=== PATIENT | female | born 1975 | race Two or more races ===

== ENCOUNTER 2020-10-19 07:11 | Day surgery (SDC) | payer OTHER ==
[~2020-10-19 07:11] MED LIST: Lactated Ringers 1,000 ML IV SCH; Sodium Chloride 0.9% 10 ML SDV IV PRN; Sodium Chloride 0.9% 10 ML Syringe FLUSH PRN; Sodium Chloride 0.9% 2.5 ML Syringe FLUSH PRN
[2020-10-19] MEDS ORDERED: propofoL 50 ML ONE (07:13)
--- NOTE | 2020-10-19 08:36 | PCM.PREANE ---
Preanesthetic Assessment - Anesthesia/Transfusion/Family Hx Anesthesia History: Prior Anesthesia Without Reaction Transfusion History: No Prior Transfusion(s) - Review of Systems General: No Symptoms Pulmonary: No Symptoms Cardiovascular: No Symptoms Gastrointestinal: No Symptoms Neurological: No Symptoms Other: Reports: None - Physical Assessment NPO Status Date: 10/19/20 NPO Status Time: 00:00 Vital Signs: Last Vital Signs Temp 97.7 F 10/19/20 07:26 Pulse 83 10/19/20 07:26 Resp 16 10/19/20 07:26 BP 108/70 10/19/20 07:26 Pulse Ox 99 10/19/20 07:26 Height: 5 ft 6 in Weight: 185 lb ASA Class: 2 Mental Status: Alert & Oriented x3 Airway Class: Mallampati = 2 Dentition: Reports: Normal Dentition ROM/Head Extension: Full Lungs: Clear to Auscultation, Normal Respiratory Effort Cardiovascular: Regular Rate, Regular Rhythm - Lab Values: Laboratory Last Values Urine HCG, Qual NEGATIVE (NEGATIVE) 10/19/20 07:20 - Allergies Allergies/Adverse Reactions: Allergies Allergy/AdvReac Type Severity Reaction Status Date / Time No Known Allergies Allergy Verified 10/13/20 13:50 - Acknowledgements Anesthesia Type Planned: General Anesthesia Pt an Appropriate Candidate for the Planned Anesthesia: Yes Alternatives and Risks of Anesthesia Discussed w Pt/Guardian: Yes Pt/Guardian Understands and Agrees with Anesthesia Plan: Yes PreAnesthesia Questionnaire HEENT History: Reports: Other (See Below) Other HEENT History: wears glasses Cardiovascular History: Reports: None Respiratory History: Reports: None Gastrointestinal History: Reports: Hemorrhoids, Other (See Below) Other Gastrointestinal History: occasional heartburn- takes OTC Prilosec, current rectal bleeding Genitourinary History: Reports: None 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: Musculoskeletal History: Reports: None Neurological History: Reports: Other (See Below) Other Neuro History: Sciatica Psychiatric History: Reports: ADHD Endocrine/Metabolic History: Reports: None Hematologic History: Reports: None Immunologic History: Reports: None Oncologic (Cancer) History: Reports: None Dermatologic History: Reports: None - Past Surgical History Head Surgeries/Procedures: Reports: None HEENT Surgical History: Reports: None Cardiovascular Surgical History: Reports: None Respiratory Surgical History: Reports: None GI Surgical History: Reports: None Female Surgical History: Reports: D&C, Tubal Ligation Endocrine Surgical History: Reports: None Neurological Surgical History: Reports: None Musculoskeletal Surgical History: Reports: None Oncologic Surgical History: Reports: None - SUBSTANCE USE Tobacco Use Status *Q: Never Tobacco User Recreational Drug Use History: No - HOME MEDS Home Medications: Home Meds Lisdexamfetamine [Vyvanse] 60 mg PO QAM 10/13/20 [History] Omeprazole Magnesium [Prilosec Otc] 20 mg PO DAILY PRN 10/13/20 [History] - CURRENT (IN HOUSE) MEDS Current Meds: Current Medications Lactated Ringer's (Ringers, Lactated) 1,000 mls @ 125 mls/hr IV ASDIRECTED YO Last Admin: 10/19/20 07:29 Dose: 125 mls/hr Documented by: Sodium Chloride (Sodium Chloride 0.9% 10 Ml Syringe) 10 ml FLUSH ASDIRECTED PRN PRN Reason: Keep Vein Open Sodium Chloride (Sodium Chloride 0.9% 2.5 Ml Syringe) 2.5 ml FLUSH ASDIRECTED PRN PRN Reason: Keep Vein Open Sodium Chloride (Sodium Chloride 0.9% 10 Ml Syringe) 10 ml FLUSH ASDIRECTED PRN PRN Reason: Keep Vein Open Sodium Chloride (Sodium Chloride 0.9% 2.5 Ml Syringe) 2.5 ml FLUSH ASDIRECTED PRN PRN Reason: Keep Vein Open Sodium Chloride (Sodium Chloride 0.9% 10 Ml Sdv) 10 ml IV ASDIRECTED PRN PRN Reason: IV Use Discontinued Medications Propofol (Diprivan 50 Ml) Confirm Administered Dose 50 mls @ as directed .ROUTE .STK-MED ONE Stop: 10/19/20 07:14
[2020-10-19] MEDS ORDERED: fentaNYL 100 MCG/2 ML SDV ONE (08:39)
--- NOTE | 2020-10-19 09:22 | PCM.OPNOTE ---
- General Post-Op/Procedure Note Date of Surgery/Procedure: 10/19/20 Operative Procedure(s): Diagnostic EGD and colonoscopy Findings: Hyperplastic polyps throughout the gastric antrum and body. Diverticulosis. Grade IV hemorrhoids Pre Op Diagnosis: BRBPR, change in bowel habits heartburn Post-Op Diagnosis: Heartburn, hyperplastic gastric polyps, diverticulosis, grade IV hemorrhoids Anesthesia Technique: MAC Primary Surgeon: Natividad Martinez Condition: Good
--- NOTE | 2020-10-19 09:34 | PCM.POSTAN ---
POST ANESTHESIA ASSESSMENT - MENTAL STATUS Mental Status: Alert, Oriented - VITAL SIGNS Vital Signs: Last Vital Signs Temp 98.4 F 10/19/20 09:13 Pulse 75 10/19/20 09:29 Resp 10 L 10/19/20 09:29 BP 106/69 10/19/20 09:29 Pulse Ox 98 10/19/20 09:29 - RESPIRATORY Respiratory Status: Respiratory Rate WNL, Airway Patent, O2 Saturation Stable - CARDIOVASCULAR CV Status: Pulse Rate WNL, Blood Pressure Stable - GASTROINTESTINAL GI Status: No Symptoms - POST OP HYDRATION Hydration Status: Adequate & Stable
--- NOTE | 2020-10-19 09:35 | PCM48HPAN ---
Post Anesthesia Note - EVALUATION WITHIN 48HRS OF ANESTHETIC Vital Signs in Normal Range: Yes Patient Participated in Evaluation: Yes Respiratory Function Stable: Yes Airway Patent: Yes Cardiovascular Function Stable: Yes Hydration Status Stable: Yes Pain Control Satisfactory: Yes Nausea and Vomiting Control Satisfactory: Yes Mental Status Recovered: Yes Vital Signs: Last Vital Signs Temp 98.4 F 10/19/20 09:13 Pulse 75 10/19/20 09:29 Resp 10 L 10/19/20 09:29 BP 106/69 10/19/20 09:29 Pulse Ox 98 10/19/20 09:29
--- NOTE | 2020-10-20 17:12 | OR ---
SURGEON: NATIVIDAD MARTINEZ MD DATE OF PROCEDURE: 10/19/2020 PREOPERATIVE DIAGNOSES: 1. Bright red bleeding per rectum. 2. Change in bowel habits. 3. Heartburn. POSTOPERATIVE DIAGNOSES: 1. Hyperplastic gastric polyps. 2. Diverticulosis. 3. Grade 4 hemorrhoids. PROCEDURE PERFORMED: Diagnostic esophagogastroduodenoscopy and colonoscopy. PRIMARY SURGEON: Natividad Martinez MD ANESTHESIA: MAC. INSTRUMENT USED: Olympus endoscope and colonoscope. EXTENT OF EXAM: To the second portion of duodenum, to the cecum. PREPARATION: Good. LIMITATIONS: None. INDICATIONS FOR EXAMINATION: The patient is a 44-year-old female with increasing heartburn as well as a change in her bowel habits with noted bright red bleeding per rectum intermittently. The patient and I discussed the need for diagnostic EGD and colonoscopy. I explained the procedure, expected perioperative course, and the risks. She verbalized understanding and wishes to proceed. PROCEDURE IN DETAIL: The patient was brought to the endoscopy suite and placed in the left lateral decubitus position. A time-out was completed verifying the patient's name, age, date of , allergies, and procedure to be performed. A bite block was placed in the patient's mouth. Monitored anesthesia care was induced, and a face mask was used to deliver oxygen throughout the procedure. After adequate sedation was achieved, a well-lubricated endoscope was placed in the patient's mouth and advanced under direct visualization to the second portion of duodenum. This appeared normal, and a photograph was taken. The scope was then fully withdrawn while examining the color, texture, anatomy, and integrity of mucosa of the upper GI tract. The duodenum appeared normal. The scope was brought into the stomach, and a photograph was taken of the pylorus and GE junction. These appeared anatomically normal. The patient had multiple hyperplastic- appearing polyps of the gastric antrum and body. A photograph of this was taken. One of these was removed and sent to Pathology labeled as gastric polyp. Random biopsies were taken of the gastric antrum, body, and fundus and sent for histologic review and H. pylori testing. The scope was then brought into the distal esophagus. This appeared normal, and a photograph was taken. There was no evidence of distal esophagitis. A biopsy was taken 1 cm above the Z-line and sent to Pathology labeled as esophageal biopsy. The scope was removed, and this portion of procedure terminated. A digital rectal exam was performed. This exam revealed grade 4 hemorrhoids. There was no stigmata of bleeding. A well- lubricated colonoscope was inserted into the rectum and advanced under direct visualization to the level of the cecum. The cecum was identified by both visual and anatomic landmarks. A photograph was taken of the cecal cap; however, due to looping of the scope more proximally, I was unable to retroflex the scope within the cecum. The scope was then fully withdrawn while examining the color, texture, anatomy, and integrity of the mucosa from the cecum to the anal canal. The patient was noted to have diverticulosis of the colon. The scope was then brought into the rectum and retroflexed to allow visualization of the anal canal opening. Again, I noted enlarged hemorrhoidal tissue. The scope was then straightened out and fully withdrawn. The cecum to anus time was 14 minutes. The patient tolerated the procedure well and was transferred to the PACU in stable condition. ENDOSCOPIC DIAGNOSES: 1. Hyperplastic gastric polyps. 2. Diverticulosis. 3. Grade 4 hemorrhoids. I will see the patient back in clinic in couple of weeks to discuss any further steps in diagnosis and treatment. NATHANIEL CORONA /[id number]
== END 2020-10-19 09:59 | disposition home or self-care (01) ==
LOC: MW.SDS 07:11
PROVIDERS: ATTEND Surgery
DX: K31.7 Polyp of stomach and duodenum (principal); K57.30 Diverticulosis of large intestine without perforation or abscess without bleeding; K64.3 Fourth degree hemorrhoids; K22.8 Other specified diseases of esophagus; K31.89 Other diseases of stomach and duodenum
CPT/HCPCS: 43239; 45378; 81025; 88305; 88342; J2704; J3010; J7120; 00813

== ENCOUNTER 2020-12-18 06:44 | Day surgery (SDC) | payer OTHER ==
[2020-12-18] MEDS ORDERED: Scopolamine 1.5 MG Transdermal Patch TRDERM PRN (06:59)
[2020-12-18] MEDS ORDERED: Lactated Ringers 1,000 ML IV SCH ×3 (07:00→11:45)
[2020-12-18] MEDS ORDERED: Ondansetron 4 MG/2 ML SDV ONE ×2 (07:09)
[2020-12-18] MEDS ORDERED: Rocuronium Bromide 50 MG/5 ML Syringe ONE ×2 (07:09→08:19)
[2020-12-18] MEDS ORDERED: Lidocaine 2% 100 MG/5 ML Syringe ONE (07:09)
[2020-12-18] MEDS ORDERED: Dexmedetomidine 200 MCG/2 ML SDV ONE (07:09)
[2020-12-18] MEDS ORDERED: Dexamethasone 4 MG/ML 5 ML MDV ONE (07:09)
[2020-12-18] MEDS ORDERED: Sodium Chloride 0.9% 20 ML ONE (07:09)
[2020-12-18] MEDS ORDERED: propofoL 100 ML ONE ×2 (07:09→09:18)
[2020-12-18] MEDS ORDERED: fentaNYL 100 MCG/2 ML SDV ONE (07:12)
--- NOTE | 2020-12-18 07:13 | PCM.PREANE ---
Preanesthetic Assessment - Procedure Proposed Procedure: TVH, Poss USO vs BSO - Anesthesia/Transfusion/Family Hx Anesthesia History: Prior Anesthesia Without Reaction Family History of Anesthesia Reaction: No Transfusion History: No Prior Transfusion(s) - Review of Systems General: No Symptoms Pulmonary: No Symptoms Cardiovascular: No Symptoms Gastrointestinal: No Symptoms (Occas HB, PRN Prilosec) Neurological: No Symptoms Other: Reports: None - Physical Assessment NPO Status Date: 12/17/20 NPO Status Time: 18:30 Vital Signs: Last Vital Signs Temp 97.9 F 12/18/20 07:00 Pulse 78 12/18/20 07:00 Resp 16 12/18/20 07:00 BP 121/68 12/18/20 07:00 Pulse Ox 98 12/18/20 07:00 Height: 5 ft 5 in Weight: 84.368 kg (Obese) ASA Class: 2 Mental Status: Alert & Oriented x3 Airway Class: Mallampati = 1 Dentition: Reports: Normal Dentition Thyro-Mental Finger Breadths: 3 Mouth Opening Finger Breadths: 3 ROM/Head Extension: Full Lungs: Clear to Auscultation, Normal Respiratory Effort Cardiovascular: Regular Rate, Regular Rhythm - Allergies Allergies/Adverse Reactions: Allergies Allergy/AdvReac Type Severity Reaction Status Date / Time No Known Allergies Allergy Verified 12/18/20 07:02 - Acknowledgements Anesthesia Type Planned: General Anesthesia Pt an Appropriate Candidate for the Planned Anesthesia: Yes Alternatives and Risks of Anesthesia Discussed w Pt/Guardian: Yes Pt/Guardian Understands and Agrees with Anesthesia Plan: Yes PreAnesthesia Questionnaire HEENT History: Reports: Other (See Below) Other HEENT History: wears glasses/contacts Cardiovascular History: Reports: None Respiratory History: Reports: None Gastrointestinal History: Reports: Diverticulosis, Hemorrhoids, Other (See Below) Other Gastrointestinal History: occasional heartburn Genitourinary History: Reports: None 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: , 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 Musculoskeletal History: Reports: None Neurological History: Reports: None Psychiatric History: Reports: ADHD Endocrine/Metabolic History: Reports: None Hematologic History: Reports: None Immunologic History: Reports: None Oncologic (Cancer) History: Reports: None Dermatologic History: Reports: None - Infectious Disease History Infectious Disease History: Reports: Chicken Pox - Past Surgical History Head Surgeries/Procedures: Reports: None HEENT Surgical History: Reports: None Cardiovascular Surgical History: Reports: None Respiratory Surgical History: Reports: None GI Surgical History: Reports: Colonoscopy, EGD Female Surgical History: Reports: D&C, Tubal Ligation Endocrine Surgical History: Reports: None Neurological Surgical History: Reports: None Musculoskeletal Surgical History: Reports: None Oncologic Surgical History: Reports: None Dermatological Surgical History: Reports: None - SUBSTANCE USE Tobacco Use Status *Q: Never Tobacco User - HOME MEDS Home Medications: Home Meds Lisdexamfetamine [Vyvanse] 60 mg PO QAM 10/13/20 [History] - CURRENT (IN HOUSE) MEDS Current Meds: Current Medications Lactated Ringer's (Ringers, Lactated) 1,000 mls @ 100 mls/hr IV ASDIRECTED YO Scopolamine (Scopolamine 1.5 Mg Transdermal Patch) 1.5 mg TRDERM Q72H PRN PRN Reason: Other
[2020-12-18] MEDS ORDERED: Metoclopramide 10 MG/2 ML SDV IVPUSH PRN (07:14)
[2020-12-18] MEDS ORDERED: HYDROmorphone 1 MG/ML Syringe IVPUSH PRN (07:14)
[2020-12-18] MEDS ORDERED: fentaNYL 100 MCG/2 ML SDV IVPUSH PRN (07:14)
[2020-12-18] MEDS ORDERED: Albuterol 0.083% 2.5 MG/3 ML Neb Soln NEB PRN (07:14)
[2020-12-18] MEDS ORDERED: Ondansetron 4 MG/2 ML SDV IVPUSH PRN ×2 (07:14→10:19)
[2020-12-18] MEDS ORDERED: Naloxone 0.4 MG/ML SDV IVPUSH PRN (07:14)
[2020-12-18] MEDS ORDERED: Morphine 2 MG/ML SYRINGE IVPUSH PRN (07:14)
[2020-12-18] MEDS ORDERED: Metoclopramide 10 MG/2 ML SDV ONE (07:28)
[2020-12-18] MEDS ORDERED: Midazolam 1 MG/ML 2 ML SDV ONE (07:29)
[2020-12-18 07:58] LABS: BLOOD UREA NITROGEN,BUN 8 mg/dL (7.0-18.0); CARBON DIOXIDE,CO2 26.3 mmol/L (21.0-32.0); CHLORIDE,CL 105 mmol/L (98-107); GLUCOSE RANDOM 103 mg/dL (74-106); POTASSIUM,K 4.7 mmol/L (3.5-5.1); SODIUM,NA 141 mmol/L (136-145)
[2020-12-18] MEDS ORDERED: ceFAZolin 1 GM Vial ONE ×2 (08:09)
[2020-12-18] MEDS ORDERED: Morphine 4 MG/ML Syringe ONE ×2 (08:24)
[2020-12-18] MEDS ORDERED: Sugammadex Sodium 200 MG/2 ML VIAL ONE (08:35)
[2020-12-18] MEDS ORDERED: Ketorolac 30 MG/ML SDV ONE (10:13)
--- NOTE | 2020-12-18 10:16 | PCM.POSTAN ---
POST ANESTHESIA ASSESSMENT - MENTAL STATUS Mental Status: Somnolent - VITAL SIGNS Vital Signs: Last Vital Signs Temp 97.5 F 12/18/20 10:04 Pulse 69 12/18/20 10:10 Resp 12 12/18/20 10:10 BP 111/68 12/18/20 10:10 Pulse Ox 93 L 12/18/20 10:10 - RESPIRATORY Respiratory Status: Respiratory Rate WNL, Airway Patent, O2 Saturation Stable - CARDIOVASCULAR CV Status: Pulse Rate WNL, Blood Pressure Stable - GASTROINTESTINAL GI Status: No Symptoms - PAIN Free Text/Narrative:: Resting comfortably - POST OP HYDRATION Hydration Status: Adequate & Stable
[2020-12-18] MEDS ORDERED: Acetaminophen/oxyCODONE 325-5 MG Tab PO PRN ×2 (10:19)
[2020-12-18] MEDS ORDERED: Morphine 4 MG/ML Syringe IVPUSH PRN (10:19)
[2020-12-18] MEDS ORDERED: Promethazine 25 MG/ML SDV IM PRN (10:19)
--- NOTE | 2020-12-18 10:33 | PCM48HPAN ---
Post Anesthesia Note - EVALUATION WITHIN 48HRS OF ANESTHETIC Vital Signs in Normal Range: Yes Patient Participated in Evaluation: Yes Respiratory Function Stable: Yes Airway Patent: Yes Cardiovascular Function Stable: Yes Hydration Status Stable: Yes Pain Control Satisfactory: Yes Nausea and Vomiting Control Satisfactory: Yes Mental Status Recovered: Yes Vital Signs: Last Vital Signs Temp 97.5 F 12/18/20 10:04 Pulse 61 12/18/20 10:29 Resp 12 12/18/20 10:29 BP 118/66 12/18/20 10:29 Pulse Ox 94 L 12/18/20 10:29 - COMMENTS/OBSERVATIONS Free Text/Narrative:: Pt doing well post-op. VSS. No apparent anesthetic complications. Dr. Ranjit Duenas
[2020-12-18] MEDS ORDERED: Ketorolac 30 MG/ML SDV IVPUSH PRN (16:30)
--- NOTE | 2020-12-18 16:42 | OR ---
SURGEON: Joel Tee MD DATE OF PROCEDURE: 12/18/2020 INDICATION FOR PROCEDURE: 45-year-old G7, P6-0-1-6, with history of menorrhagia and uterine fibroids, presenting for scheduled hysterectomy. Patient reported increasingly heavier and more prolonged bleeding with her cycles for the past year. She has noticed that her bleeding is lasting about 14 days and is bothering her at work and with daily activities. She had a Mirena IUD and other hormonal contraception in the past and reports it did not decrease her cycles. She has completed her family and previously had a tubal ligation, and she desires definitive management with hysterectomy. She had a pelvic ultrasound which showed a 3 cm anterior intramural fibroid. She had an endometrial biopsy and endocervical curettage and pap smear which were all benign. PREOPERATIVE DIAGNOSES: 1. Menorrhagia. 2. Uterine fibroids. POSTOPERATIVE DIAGNOSES: 1. Menorrhagia. 2. Uterine fibroids. PROCEDURES PERFORMED: Total vaginal hysterectomy and cystoscopy. ANESTHESIOLOGIST: Dr. Ranjit Duenas. ANESTHESIA: General anesthesia. FINDINGS: Uterus about 10-week size, anteverted, and mobile. Bilateral ovaries and fallopian tubes normal appearing. The uterus contained a 3 cm anterior wall intramural fibroid near the fundus. ESTIMATED BLOOD LOSS: 300 mL. URINE OUTPUT: 75 mL. DESCRIPTION OF THE PROCEDURE: The procedure was discussed with the patient. Risks included bleeding, infection, DVTs, and injury to surrounding organs including bladder, bowel, and ureters were discussed. Patient expressed understanding. Questions answered and consent signed. She was given 2 g Ancef IV before the procedure. SCDs were placed. The patient was brought to the operating room. General anesthesia was applied without difficulty. Burgess catheter was placed. She was placed in dorsal lithotomy position with her legs supported using stirrups. She was prepped and draped in the usual fashion using Betadine. Bimanual exam noted a 10-week size uterus, anteverted, and mobile. No adnexal masses were felt. A weighted speculum was placed in the posterior vaginal vault. The cervix was grasped with two Tatyana clamps and downward traction was applied. A circumferential incision was made at the vaginal mucosa with cautery. The vagina was bluntly dissected away from the cervix circumferentially. The peritoneum was seen posteriorly and entered with Steward scissors. Palpation was performed to confirm intraperitoneal location. A gooseneck speculum was then placed in the posterior cul-de-sac. Peritoneal entry was attempted anteriorly. Dissection was performed, however, I was not able to clearly visualize the peritoneum. The uterosacral ligaments were visualized, clamped with Zainab clamps, cut and ligated with 2-0 Vicryl suture bilaterally. Two additional bites were made along the cardinal ligaments and ligated in similar fashion. Additional dissection of the anterior cul-de- sac was performed with Metzenbaum scissors and intraperitoneal location was entered. A right-angle retractor was placed anteriorly. Additional bites were made bilaterally along the broad ligaments and ligated in similar fashion. The anterior fibroid was palpated. It was closer to the right side which was limiting visualization on that side. Therefore, cautery was used to make an incision at the serosa and a myomectomy was performed. A right angle retractor was then used to sweep along the fundus of the uterus to help visualize the remaining pedicle. The tubal ovarian complex was then transected and ligated. The uterus was freed up bilaterally, it was measuring about 10-week size. Both fallopian tubes and ovaries were seen and were normal appearing. All pedicles were carefully examined. There was some bleeding along the pedicle on the right side. An additional [id number] suture was placed with good hemostasis. Cautery was applied to some superficially bleeding pedicles on the left side. Hemostasis was again confirmed. The suture that was previously used to ligate the uterosacral ligaments was then used to attach it to the lateral edge of the vaginal mucosa for suspension. 0 Polysorb was used to close the vaginal mucosa in a running locking fashion from the superior edge to the inferior edge. The uterosacral ligaments were attached at the midline. Vaginal mucosa was found to be hemostatic. Cystoscopy was then performed after injection of fluorescein and Lasix. The bladder was normal appearing without any signs of injury. Bilateral ureteral jets were seen. The Burgess catheter was then reinserted. The vaginal cuff was again examined and found to be hemostatic and intact. The patient was then taken out of dorsal lithotomy position and cleaned. She tolerated the procedure well, was awakened from anesthesia without difficulty. BERNIE CORONA /[id number] ANN MARIE
[2020-12-19 07:16] LABS: BLOOD UREA NITROGEN,BUN 9 mg/dL (7.0-18.0); CARBON DIOXIDE,CO2 25.2 mmol/L (21.0-32.0); CHLORIDE,CL 105 mmol/L (98-107); GLUCOSE RANDOM 109 mg/dL (74-106); POTASSIUM,K 4.3 mmol/L (3.5-5.1); SODIUM,NA 139 mmol/L (136-145)
--- NOTE | 2020-12-19 09:32 | PCM.PN ---
- General Info Date of Service: 12/19/20 Functional Status: Reports: Pain Controlled, Tolerating Diet, Ambulating, Urinating, Other (Minimal pain. Light spotting. ) - Review of Systems General: Reports: No Symptoms HEENT: Reports: No Symptoms Pulmonary: Reports: No Symptoms Cardiovascular: Reports: No Symptoms Gastrointestinal: Reports: No Symptoms Genitourinary: Reports: No Symptoms Musculoskeletal: Reports: No Symptoms Skin: Reports: No Symptoms Neurological: Reports: No Symptoms Psychiatric: Reports: No Symptoms - Patient Data Vitals - Most Recent: Last Vital Signs Temp 37.2 C 12/19/20 08:00 Pulse 74 12/19/20 08:00 Resp 15 12/19/20 08:00 BP 103/68 12/19/20 08:00 Pulse Ox 95 12/19/20 08:00 Weight - Most Recent: 186 lb (Obese) I&O - Last 24 Hours: Intake & Output 12/18/20 12/19/20 12/19/20 22:59 06:59 14:59 Intake Total 598 Output Total 2100 Balance -1502 Lab Results Last 24 Hours: Laboratory Results - last 24 hr 12/19/20 12/19/20 Range/Units 06:17 06:17 WBC 9.18 (4.0-11.0) K/uL RBC 4.43 (4.30-5.90) M/uL Hgb 12.7 (12.0-16.0) g/dL Hct 37.6 (36.0-46.0) % MCV 84.9 (80.0-98.0) fL MCH 28.7 (27.0-32.0) pg MCHC 33.8 (31.0-37.0) g/dL RDW Std Deviation 40.7 (28.0-62.0) fl RDW Coeff of Murphy 13 (11.0-15.0) % Plt Count 254 (150-400) K/uL MPV 10.50 (7.40-12.00) fL Neut % (Auto) 59.7 (48.0-80.0) % Lymph % (Auto) 29.0 (16.0-40.0) % Knox % (Auto) 10.7 (0.0-15.0) % Eos % (Auto) 0.4 (0.0-7.0) % Baso % (Auto) 0.2 (0.0-1.5) % Neut # (Auto) 5.5 (1.4-5.7) K/uL Lymph # (Auto) 2.7 H (0.6-2.4) K/uL Knox # (Auto) 1.0 H (0.0-0.8) K/uL Eos # (Auto) 0.0 (0.0-0.7) K/uL Baso # (Auto) 0.0 (0.0-0.1) K/uL Nucleated RBC % 0.0 /100WBC Nucleated RBCs # 0 K/uL Sodium 139 (136-145) mmol/L Potassium 4.3 (3.5-5.1) mmol/L Chloride 105 (98-107) mmol/L Carbon Dioxide 25.2 (21.0-32.0) mmol/L BUN 9 (7.0-18.0) mg/dL Creatinine 0.9 (0.6-1.0) mg/dL Est Cr Clr Drug Dosing 72.53 mL/min Estimated GFR (MDRD) > 60.0 ml/min Glucose 109 H (74-106) mg/dL Calcium 8.7 (8.5-10.1) mg/dL Med Orders - Current: Current Medications Lactated Ringer's (Ringers, Lactated) 1,000 mls @ 100 mls[facility] Admin: 12/18/20 07:12 Dose: 100 mls/hr Documented by: Lactated Ringer's (Ringers, Lactated) 1,000 mls [facility] 125 [facility]ac Tromethamine (Ketorolac 30 Mg/Ml Sdv) 30 mg IVPUSH Q6H PRN PRN Reason: Pain (severe 7-10) Stop: 12/23/20 16:31 Morphine Sulfate (Morphine 4 Mg/Ml Syringe) 4 mg IVPUSH Q2H PRN PRN Reason: Pain (severe 7-10) Ondansetron HCl (Ondansetron 4 Mg/2 Ml Sdv) 4 mg IVPUSH Q6H PRN PRN Reason: Nausea/Vomiting Oxycodone/Acetaminophen (Acetaminophen/Oxycodone 325-5 Mg Tab) 1 tab PO Q4H PRN PRN Reason: Pain (moderate 4-6) Oxycodone/Acetaminophen (Acetaminophen/Oxycodone 325-5 Mg Tab) 2 tab PO Q4H PRN PRN Reason: Pain (moderate 4-6) Promethazine HCl (Promethazine 25 Mg/Ml Sdv) 25 mg IM Q6H PRN PRN Reason: Nausea/Vomiting Discontinued Medications Albuterol (Albuterol 0.083% 2.5 Mg/3 Ml Neb Soln) 2.5 mg NEB ONETIME PRN PRN Reason: Wheezing Cefazolin Sodium (Cefazolin 1 Gm Vial) Confirm Administered Dose 1 gm .ROUTE .STK-MED ONE Stop: 12/18/20 08:10 Cefazolin Sodium (Cefazolin 1 Gm Vial) Confirm Administered Dose 1 gm .ROUTE .STK-MED ONE Stop: 12/18/20 08:10 Dexamethasone (Dexamethasone 4 Mg/Ml 5 Ml Mdv) Confirm Administered Dose 20 mg .ROUTE .STK-MED ONE Stop: 12/18/20 07:10 Dexmedetomidine HCl (Dexmedetomidine 200 Mcg/2 Ml Sdv) Confirm Administered Dose 200 mcg .ROUTE .STK-MED ONE Stop: 12/18/20 07:10 Droperidol (Droperidol 5 Mg/2 Ml Sdv) 0.625 mg IVPUSH ONETIME PRN PRN Reason: Nausea/Vomiting Fentanyl (Fentanyl 100 Mcg/2 Ml Sdv) Confirm Administered Dose 100 mcg .ROUTE .STK-MED ONE Stop: 12/18/20 07:13 Fentanyl (Fentanyl 100 Mcg/2 Ml Sdv) 50 mcg IVPUSH Q5M PRN PRN Reason: Pain (mild 1-3) Hydromorphone HCl (Hydromorphone 1 Mg/Ml Syringe) 1 mg IVPUSH Q10M PRN PRN Reason: Pain (moderate 4-6) Lactated Ringer's (Ringers, Lactated) 1,000 mls @ 125 mls/hr IV ASDIRECTED YO Propofol (Diprivan 100 Ml) Confirm Administered Dose 100 mls @ as directed .ROUTE .STK-MED ONE Stop: 12/18/20 07:10 Sodium Chloride (Normal Saline) Confirm Administered Dose 20 mls @ as directed .ROUTE .STK-MED ONE Stop: 12/18/20 07:10 Acetaminophen (Ofirmev 1000 Mg/100 Ml) Confirm Administered Dose 100 mls @ as directed .ROUTE .STBackupAgent-MED ONE Stop: 12/18/20 07:13 Propofol (Diprivan 100 Ml) Confirm Administered Dose 100 mls @ as directed .ROUTE .STBackupAgent-MED ONE Stop: 12/18/20 09:19 Ketorolac Tromethamine (Ketorolac 30 Mg/Ml Sdv) Confirm Administered Dose 30 mg .ROUTE .STK-MED ONE Stop: 12/18/20 10:14 Lidocaine HCl (Lidocaine 2% 100 Mg/5 Ml Syringe) Confirm Administered Dose 100 mg .ROUTE .STBackupAgent-MED ONE Stop: 12/18/20 07:10 Metoclopramide HCl (Metoclopramide 10 Mg/2 Ml Sdv) 10 mg IVPUSH ONETIME PRN PRN Reason: Nausea/Vomiting Metoclopramide HCl (Metoclopramide 10 Mg/2 Ml Sdv) Confirm Administered Dose 10 mg .ROUTE .STBackupAgent-MED ONE Stop: 12/18/20 07:29 Midazolam HCl (Midazolam 1 Mg/Ml 2 Ml Sdv) Confirm Administered Dose 2 mg .ROUTE .ST-MED ONE Stop: 12/18/20 07:30 Miscellaneous Medication (Phenylephrine Hcl In 0.9% Nacl 1 Mg/10 Ml Syringe) Confirm Administered Dose 1 mg .ROUTE .STBackupAgent-MED ONE Stop: 12/18/20 09:36 Morphine Sulfate (Morphine 2 Mg/Ml Syringe) 2 mg IVPUSH Q10M PRN PRN Reason: Pain (severe 7-10) Morphine Sulfate (Morphine 4 Mg/Ml Syringe) Confirm Administered Dose 4 mg .ROUTE .ST-MED ONE Stop: 12/18/20 08:25 Morphine Sulfate (Morphine 4 Mg/Ml Syringe) Confirm Administered Dose 4 mg .ROUTE .ST-MED ONE Stop: 12/18/20 08:25 Naloxone HCl (Naloxone 0.4 Mg/Ml Sdv) 0.1 mg IVPUSH ASDIRECTED PRN PRN Reason: Respiratory Depression Ondansetron HCl (Ondansetron 4 Mg/2 Ml Sdv) Confirm Administered Dose 4 mg .ROUTE .STK-MED ONE Stop: 12/18/20 07:10 Ondansetron HCl (Ondansetron 4 Mg/2 Ml Sdv) Confirm Administered Dose 4 mg .ROUTE .STBackupAgent-MED ONE Stop: 12/18/20 07:10 Ondansetron HCl (Ondansetron 4 Mg/2 Ml Sdv) 4 mg IVPUSH ONETIME PRN PRN Reason: Nausea/Vomiting Rocuronium Southside (Rocuronium Southside 50 Mg/5 Ml Syringe) Confirm Administered Dose 50 mg .ROUTE .STK-MED ONE Stop: 12/18/20 07:10 Rocuronium [place]side (Rocuronium [place] 50 Mg/5 Ml Syringe) Confirm Administered Dose 50 mg .ROUTE .STK-MED ONE Stop: 12/18/20 08:20 Scopolamine (Scopolamine 1.5 Mg Transdermal Patch) 1.5 mg TRDERM Q72H PRN PRN Reason: Other Last Admin: 12/18/20 07:05 Dose: 1.5 mg Documented by: Sugammadex Sodium (Sugammadex Sodium 200 Mg/2 Ml Vial) Confirm Administered Dose 200 mg .ROUTE .STK-MED ONE Stop: 12/18/20 08:36 - Exam Urinary Catheter Total Time: 0Days 8Hours General: Alert, Oriented, Cooperative, No Acute Distress HEENT: Pupils Equal, Pupils Reactive, EOMI Neck: Supple, Trachea Midline, No JVD Lungs: Normal Respiratory Effort GI/Abdominal Exam: Soft, Non-Tender, No Organomegaly, No Distention Back Exam: Normal Inspection, Full Range of Motion Extremities: Normal Inspection, Normal Range of Motion, Non-Tender, No Pedal Edema Skin: Warm, Dry, Intact Neurological: No New Focal Deficit Psy/Mental Status: Alert, Normal Affect, Normal Mood - Patient Data Lab Results Last 24 hrs: Laboratory Results - last 24 hr 12/19/20 12/19/20 Range/Units 06:17 06:17 WBC 9.18 (4.0-11.0) K/uL RBC 4.43 (4.30-5.90) M/uL Hgb 12.7 (12.0-16.0) g/dL Hct 37.6 (36.0-46.0) % MCV 84.9 (80.0-98.0) fL MCH 28.7 (27.0-32.0) pg MCHC 33.8 (31.0-37.0) g/dL RDW Std Deviation 40.7 (28.0-62.0) fl RDW Coeff of Murphy 13 (11.0-15.0) % Plt Count 254 (150-400) K/uL MPV 10.50 (7.40-12.00) fL Neut % (Auto) 59.7 (48.0-80.0) % Lymph % (Auto) 29.0 (16.0-40.0) % Knox % (Auto) 10.7 (0.0-15.0) % Eos % (Auto) 0.4 (0.0-7.0) % Baso % (Auto) 0.2 (0.0-1.5) % Neut # (Auto) 5.5 (1.4-5.7) K/uL Lymph # (Auto) 2.7 H (0.6-2.4) K/uL Knox # (Auto) 1.0 H (0.0-0.8) K/uL Eos # (Auto) 0.0 (0.0-0.7) K/uL Baso # (Auto) 0.0 (0.0-0.1) K/uL Nucleated RBC % 0.0 /100WBC Nucleated RBCs # 0 K/uL Sodium 139 (136-145) mmol/L Potassium 4.3 (3.5-5.1) mmol/L Chloride 105 (98-107) mmol/L Carbon Dioxide 25.2 (21.0-32.0) mmol/L BUN 9 (7.0-18.0) mg/dL Creatinine 0.9 (0.6-1.0) mg/dL Est Cr Clr Drug Dosing 72.53 mL/min Estimated GFR (MDRD) > 60.0 ml/min Glucose 109 H (74-106) mg/dL Calcium 8.7 (8.5-10.1) mg/dL Result Diagrams: 12/19/20 06:17 12/19/20 06:17 Sepsis Event Note - Evaluation Sepsis Screening Result: No Definite Risk - Focused Exam Vital Signs: Vital Signs Temp Pulse Resp BP Pulse Ox 12/19/20 08:00 37.2 C 74 15 103/68 95 12/19/20 04:30 36.8 C 68 16 96/52 L 95 12/19/20 00:00 70 17 110/70 97 - Problem List Review Problem List Initiated/Reviewed/Updated: Yes - My Orders Last 24 Hours: My Active Orders 12/18/20 10:19 Patient Status [ADT] Routine Notify Provider Intake and Out [RC] ASDIRECTED RT Incentive Spirometry [RC] Q2HWA Up ad Silvana [RC] PER UNIT ROUTINE Acetaminophen/oxyCODONE [Percocet 325-5 MG] 1 tab PO Q4H PRN Acetaminophen/oxyCODONE [Percocet 325-5 MG] 2 tab PO Q4H PRN Morphine 4 mg IVPUSH Q2H PRN Ondansetron [Zofran] 4 mg IVPUSH Q6H PRN Promethazine [Phenergan] 25 mg IM Q6H PRN Peripheral IV Discontinue [OM.PC] Routine Sequential Compression Device [OM.PC] Per Unit Routine Resuscitation Status Routine 12/18/20 10:20 Antiembolic Devices [RC] PER UNIT ROUTINE 12/18/20 Lunch Regular Diet [DIET] 12/18/20 11:45 Lactated Ringers [Ringers, Lactated] 1,000 ml IV ASDIRECTED 12/18/20 16:30 Ketorolac [Toradol] 30 mg IVPUSH Q6H PRN 12/19/20 09:24 Ready for Discharge [RC] PER UNIT ROUTINE - Assessment Assessment:: 45 yo POD1 s/p TVH and cystoscopy. Stable and recovering well. - Plan Plan:: - vital stable - ambulating and tolerating PO - Hgb stable this AM, bleeding light - good UO, Cr stable at 0.9 this AM - minimal pain Stable for discharge home, reviewed postop care instructions.
== END 2020-12-19 10:10 | disposition home or self-care (01) ==
LOC: MW.SDS 06:44 → MW.OB 11:00 → MW.SDS 12-19 10:10
PROVIDERS: ATTEND Obstetrics & Gynecology
DX: D25.9 Leiomyoma of uterus, unspecified (principal); N80.0 Endometriosis of uterus; Z79.899 Other long term (current) drug therapy; Z98.890 Other specified postprocedural states; Z68.30 Body mass index [BMI] 30.0-30.9, adult
CPT/HCPCS: 36415; 58260; 80048; 84703; 85025; 86850; 86900; 86901; A9270; J0131; J0690; J1100; J2250; J2370; J2704; J2765; J3490; J7030; J7120; J1885; J2270; J2405; J3010